=== PATIENT | female | born 1995 | race Caucasian/White ===

== ENCOUNTER 2016-08-30 14:32 | Emergency (ER) | payer BC ==
[2016-08-30] MEDS ORDERED: NS 1,000 ML IV ONE (14:45)
[2016-08-30 15:07] VITALS: RESP 18
[2016-08-30 15:09] LABS: COLOR PALE YELLOW; LEUKOCYTE ESTERASE,URINE NEGATIVE (NEGATIVE); NITRITE,URINE NEGATIVE (NEGATIVE)
[2016-08-30] MEDS ORDERED: ONDANSETRON 4 MG/2 ML VIAL IVP ONE (15:17)
--- NOTE | 2016-08-30 15:18 | EDPHY ---
H & P Stated Complaint: r/o appy rlq pain Time Seen by Provider: 08/30/16 15:18 HPI/ROS: HPI: 21-year-old female presents to emergency department with chief concern 4/ 10 right mid abdominal discomfort that onset suddenly last night. Reports associated nausea. Denies fever, chills, URI symptoms, shortness of breath, chest pain, vomiting, urinary symptoms, back or flank pain, diarrhea. No aggravating or alleviating factors. LMP August 13. Treated for Chlamydia in november. No recent unusual vulvovaginal lesions or discharge. Current home medications include Lamictal, lithium, Latuda, lorazepam, Lavora OCP. ROS:10 point review of systems is negative other than as stated in HPI Source: Patient - Personal History LMP (Females 10-55): 15-21 Days Ago Current Tetanus/Diphtheria Vaccine: Yes Current Tetanus Diphtheria and Acellular Pertussis (TDAP): Yes Tetanus Vaccine Date: < 10 years - Medical/Surgical History Hx Asthma: No Hx Chronic Respiratory Disease: No Hx Diabetes: No Hx Cardiac Disease: No Hx Renal Disease: No Hx Cirrhosis: No Hx Alcoholism: No Hx HIV/AIDS: No Hx Splenectomy or Spleen Trauma: No Other PMH: bipolar - Family History Significant Family History: No pertinent family hx (No personal or family history of kidney stones) - Social History Smoking Status: Never smoked Alcohol Use: None Drug Use: None - Physical Exam Exam: Vital signs stable, reviewed by me General: Awake, alert, calm, cooperative. No acute distress. Head: Normalocephalic. Atraumatic. EENT: PERRLA. EOMI. No pallor or injection. Anicteric. No nystagmus. No injection. Neck: Supple, nontender. No lymphadenopathy. Full range of motion. No meningismus. Respiratory: Breathing unlabored. Breath sounds equal bilaterally and clear to auscultation. No adventitious sounds. CV: Chest nontender, atraumatic. Heart rate regular. No murmur, distal pulses 2+ bilaterally. Brisk cap refill all extremities. GI: Abdomen soft, moderate tenderness right mid abdomen to deep palpation. No rebound. No guarding. No right lower quadrant tenderness. No right upper quadrant tenderness. Bowel sounds normoactive and positive x4 quadrants. : No suprapubic tenderness. Mild right flank tenderness to percussion Neuro: Alert. Oriented x 3. Speech clear. Nonfocal cranial nerves throughout. Sensation intact all extremities. Skin: Skin warm, dry, intact. No rashes, abrasions, or lacerations. Skin turgor normal. Extremities: Full range of motion in all 4 extremities. Strength 5+ all extremities. Constitutional: Initial Vital Signs Temperature (C) 36.8 C 08/30/16 15:05 Heart Rate 67 08/30/16 15:05 Respiratory Rate 18 08/30/16 15:05 Blood Pressure 137/73 H 08/30/16 15:05 O2 Sat (%) 99 08/30/16 15:05 O2 Delivery Mode Room Air Allergies/Adverse Reactions: No Known Allergies Allergy (Unverified 08/30/16 15:03) Home Medications: Medication Instructions Recorded LORAZEPAM 08/30/16 LaMICtal 08/30/16 Latuda 08/30/16 Levora-28 Tablet 08/30/16 [place] Carbonate 08/30/16 Medical Decision Making - Diagnostics Imaging: Sonography of the Right Lower Quadrant of the Abdomen (Attention Periappendiceal Region), and Transabdominal and Endovaginal Pelvic Sonography Clinical History: 21-year-old female with some right-sided abdominal pain for one day. Evaluate for appendicitis or an ovarian cyst. The patient's urinalysis was negative, and she does not have an elevated white blood cell count. TECHNIQUE: A linear 9 MHz transducer as well as a curvilinear 5 MHz transducer were initially used to sonographically evaluate the right lower quadrant of the abdomen. Graded compression was used, and color Doppler was also utilized. Cine clips are stored on PACS. Subsequently , a curvilinear 5 MHz transducer was used to sonographically evaluate the pelvis, using a moderately distended urinary bladder as a window. To better assess the uterine architecture and the adnexal structures, endovaginal pelvic sonography was also performed. Color and spectral Doppler were used. Comparison: None. Findings: SONOGRAPHY LIMITED TO THE RIGHT LOWER QUADRANT OF THE ABDOMEN: There is a tubular-shaped blind- ending structure emanating off the caudal aspect of the cecum consistent with the appendix, which maximally measures up to 4.2-5.0 mm in diameter (normal is less than 6.0 mm), and compresses. The patient was not specifically tender while scanning over this structure. It is noted to "drape" over the iliac vasculature. Incidental note is made of a fat-replaced thin lymph node in the right lower quadrant. There is no free fluid. There were numerous peristalsing loops of bowel which were present , but do not appear hyperemic with color Doppler. Impression: Normal sonographic appearance of the appendix. COMPLETE PELVIC SONOGRAPHY: Transabdominal Pelvic Sonography: The uterus is anteverted, measuring 6.8 x 2.5 x 3.8 cm. The right and left adnexal structures are obscured by bowel gas, and the ovaries are not identified using this modality. There is no free fluid. Endovaginal Pelvic Sonography: The endometrium is homogeneous, and measures 2.7 mm. There is no focal myometrial abnormality. The right ovary measures 3.6 x 1.7 x 1.5 cm. There is a benign- appearing 1.1 x 0.8 x 1.0 cm right paraovarian simple cyst. The left ovary measures 3.3 x 1.9 x 2.1 cm. There are no solid adnexal masses identified. Normal arterial blood flow is documented to both ovaries by Doppler ultrasound. The resistive index associated with the right ovary is 0.62, and with the left ovary is 0.59. There is no free fluid in the pelvic cul-de-sac. Impression: Normal pelvic sonography. If there is persistence or progression of the patient's symptoms, contrast- enhanced CT imaging of the abdomen and pelvis may be of benefit. Results were discussed with Jessica Araya N.P. A test result has been communicated to a licensed care provider and documented in the [employer] Critical Result system on 08/30/2016 17:13, Message ID [id number]. Dictated By: Jaden Koehler MD *This report was compiled using a voice recognition dictation system and may contain typographical errors* 05 T: PSCRIBE 08/30/161705 Electronically Signed by: Jaden Koehler MD 08/30/161718 CC: Jessica Araya DEPUTY REGISTER OF DEEDS; BRENNAN MEDINA; NONE *PRIMARY CARE PHYS ONLY* ED Course/Re-evaluation: 21-year-old female presents to emergency department with right mid abdominal discomfort. Urinalysis is negative for evidence of UTI or hematuria. Urine HCG negative. Labs pending. Ultrasound pending. 4 mg IV Zofran and normal saline ordered. Patient declines pain medication presently. 1730: White count 6300. Metabolic panel unremarkable. Ultrasound shows a normal appearing appendix with no surrounding free fluid. Pelvic ultrasound shows a small right benign ovarian cyst but no evidence for her pain. There is no free fluid or torsion. She is stable. Vitals are stable. Pain is 3 to 4/10 and she declines pain medication. As her white count is normal, stable vitals without a fever, no nausea vomiting, will have her follow up with primary care tomorrow for recheck without fail. She has been counseled. A partial list of the differential diagnoses considered include but are not limited to cholecystitis, appendicitis, ovarian torsion, ovarian cyst, constipation. I discussed the differential diagnosis and the plan with the patient as well as the usual expected course of the illness. The patient understands that this diagnosis is provisional and that in medicine we are not always correct and that further workup is often warranted. Customary warnings were given concerning the current diagnosis and other possible diagnoses. Patient's questions were answered. The patient was instructed to return to the emergency department should the symptoms worsen or return, otherwise to followup with the physician listed. Differential Diagnosis: Differential diagnosis includes but is not limited to and in no particular order ovarian cyst, ovarian torsion, UTI, pyelonephritis, kidney stone, ectopic , appendicitis, PID, constipation - Data Points Laboratory Results: Laboratory Results 08/30/16 15:37 08/30/16 15:37 08/30/16 08/30/16 08/30/16 15:37 15:37 14:58 WBC 6.30 10^3/uL 10^3/uL (3.80-9.50) RBC 4.08 10^6/uL L 10^6/uL (4.18-5.33) Hgb 13.1 g/dL g/dL (12.6-16.3) Hct 38.8 % % (38.0-47.0) MCV 95.1 fL fL (81.5-99.8) MCH 32.1 pg pg (27.9-34.1) MCHC 33.8 g/dL g/dL (32.4-36.7) RDW 12.3 % % (11.5-15.2) Plt Count 264 10^3/uL 10^3/uL (150-400) MPV 9.8 fL fL (8.7-11.7) Neut % (Auto) 53.4 % % (39.3-74.2) Lymph % (Auto) 39.4 % % (15.0-45.0) [place] % (Auto) 5.7 % % (4.5-13.0) Eos % (Auto) 1.0 % % (0.6-7.6) Baso % (Auto) 0.3 % % (0.3-1.7) Nucleat RBC Rel Count 0.0 % % (0.0-0.2) Absolute Neuts (auto) 3.37 10^3/uL 10^3/uL (1.70-6.50) Absolute Lymphs (auto) 2.48 10^3/uL 10^3/uL (1.00-3.00) Absolute Monos (auto) 0.36 10^3/uL 10^3/uL (0.30-0.80) Absolute Eos (auto) 0.06 10^3/uL 10^3/uL (0.03-0.40) Absolute Basos (auto) 0.02 10^3/uL 10^3/uL (0.02-0.10) Absolute Nucleated RBC 0.00 10^3/uL 10^3/uL (0-0.01) Immature Gran % 0.2 % % (0.0-1.1) Immature Gran # 0.01 10^3/uL 10^3/uL (0.00-0.10) Sodium 141 mEq/L mEq/L (134-144) Potassium 4.5 mEq/L mEq/L (3.5-5.2) Chloride 107 mEq/L mEq/L (97-110) Carbon Dioxide 24 mEq/l mEq/l (22-31) Anion Gap 10 mEq/L mEq/L (8-16) BUN 8 mg/dL mg/dL (7-23) Creatinine 0.9 mg/dL mg/dL (0.6-1.0) Estimated GFR > 60 Glucose 89 mg/dL mg/dL (70-100) Calcium 9.2 mg/dL mg/dL (8.5-10.4) Urine Color PALE YELLOW Urine Appearance CLEAR Urine pH 8.0 H (5.0-7.5) Ur Specific [place] 1.004 (1.002-1.030) Urine Protein NEGATIVE (NEGATIVE) Urine Ketones NEGATIVE (NEGATIVE) Urine Blood NEGATIVE (NEGATIVE) Urine Nitrate NEGATIVE (NEGATIVE) Urine Bilirubin NEGATIVE (NEGATIVE) Urine Urobilinogen NEGATIVE EU EU (0.2-1.0) Ur Leukocyte Esterase NEGATIVE (NEGATIVE) Urine Glucose NEGATIVE (NEGATIVE) Urine Test 08/30/16 14:58 WBC RBC Hgb Hct MCV MCH MCHC RDW Plt Count MPV Neut % (Auto) Lymph % (Auto) [place] % (Auto) Eos % (Auto) Baso % (Auto) Nucleat RBC Rel Count Absolute Neuts (auto) Absolute Lymphs (auto) Absolute Monos (auto) Absolute Eos (auto) Absolute Basos (auto) Absolute Nucleated RBC Immature Gran % Immature Gran # Sodium Potassium Chloride Carbon Dioxide Anion Gap BUN Creatinine Estimated GFR Glucose Calcium Urine Color Urine Appearance Urine pH Ur Specific [place] Urine Protein Urine Ketones Urine Blood Urine Nitrate Urine Bilirubin Urine Urobilinogen Ur Leukocyte Esterase Urine Glucose Urine Test NEGATIVE Medications Given: Discontinued Medications Sodium Chloride (Ns) 1,000 mls @ 0 mls/hr IV ONCE ONE PRN Reason: Wide Open Stop: 08/30/16 14:46 Last Admin: 08/30/16 15:41 Dose: 1,000 mls Ondansetron HCl (Zofran) 4 mg IVP EDNOW ONE Stop: 08/30/16 15:18 Last Admin: 08/30/16 15:41 Dose: 4 mg Departure - Departure Disposition: Home, Routine, Self-Care Clinical Impression: Right sided abdominal pain Condition: Good Instructions: Acute Abdominal Pain (ED) Additional Instructions: Plan: You may use 600 mg of ibuprofen every 6 hours for fever, inflammation, or pain. Always take ibuprofen with food and stay well hydrated while taking. Do not exceed the maximum allowable dose in a 24 hour period which is 2400 mg. You may use 1000 mg of Tylenol every 8 hours. This may be staggered with the ibuprofen. Do not exceed the maximum dose in a 24 hour period which is 3 GM or 3000 mg. Follow up with primary care tomorrow for recheck without fail--When you call to schedule appointment, please let the office know you are an "ER follow up" appointment" Return for worsening symptoms despite treatment plan. Referrals: NONE *PRIMARY CARE P,. [Primary Care Provider] - As per Instructions Suri Randhawa MD [Medical Doctor] - As per Instructions
[2016-08-30 15:48] LABS: % IMMATURE GRANULYOCYTES 0.2 % (0.0-1.1); ABSOLUTE IMMATURE GRANULOCYTES 0.01 10^3/uL (0.00-0.10); ADD DIFF? NO; ADD MORPH? NO; ADD SCAN? NO; ATYPICAL LYMPHOCYTE FLAG 0 (0-99); FRAGMENT RBC FLAG 0 (0-99); HEMATOCRIT 38.8 % (38.0-47.0); HEMOGLOBIN 13.1 g/dL (12.6-16.3); LEFT SHIFT FLG 0 (0-99); LIPEMIA HEMOLYSIS FLAG 90 (0-99); MEAN CELL HEMOGLOBIN 32.1 pg (27.9-34.1); MEAN CELL HEMOGLOBIN CONCENTR. 33.8 g/dL (32.4-36.7); MEAN CELL VOLUME 95.1 fL (81.5-99.8); MEAN PLATELET VOLUME 9.8 fL (8.7-11.7); PLATELET CLUMPS FLAG 20 (0-99); PLATELET COUNT 264 10^3/uL (150-400); RED BLOOD CELL COUNT 4.08 10^6/uL (4.18-5.33); RED CELL DISTRIBUTION WIDTH 12.3 % (11.5-15.2)
[2016-08-30 16:12] LABS: ANION GAP 10 mEq/L (8-16); CALCIUM 9.2 mg/dL (8.5-10.4); CARBON DIOXIDE 24 mEq/l (22-31); CHLORIDE 107 mEq/L (97-110); CREATININE 0.9 mg/dL (0.6-1.0); GLOMERULAR FILTRATION RATE > 60; GLUCOSE 89 mg/dL (70-100); POTASSIUM 4.5 mEq/L (3.5-5.2); SODIUM 141 mEq/L (134-144)
[2016-08-30 17:44] VITALS: BP 110/58; PULSE 54; TEMP 97.9; O2SAT 97
== END 2016-08-30 17:47 | disposition home or self-care (01) ==
DX: R10.9 Unspecified abdominal pain (principal); R11.0 Nausea
CPT/HCPCS: 96374; J2405